=== PATIENT | female | born 1965 | race Caucasian/White ===

== ENCOUNTER 2019-12-28 01:20 | Outpatient (CLI) | payer BC, SELFPAY ==
[2019-12-28 18:03] LABS: SARS-CoV-2 RNA PCR Negative
== END 2019-12-28 01:21 | disposition home or self-care (01) ==
LOC: ANHCOVIDDT 01:20
PROVIDERS: PCP Internal Medicine Geriatric Medicine; Visit Provider Orthopaedic Surgery
DX: Z01.812 Encounter for preprocedural laboratory examination (principal); Z20.828 Contact with and (suspected) exposure to other viral communicable diseases
CPT/HCPCS: 87635; C9803; U0003

== ENCOUNTER 2019-12-31 00:48 | Day surgery (SDC) | payer BC, SELFPAY ==
[2019-12-19 10:17] VITALS: BMI 29.7
[2019-12-31] VITALS (7 sets, daily range): BP systolic 108–140; BP diastolic 59–79; PULSE 61–92; RESP 13–16; TEMP 36.3–36.6; O2SAT 98–100
[2019-12-31] MEDS: ACETAMINOPHEN 500 MG TABLET 1000 MG PO (08:54)
[2019-12-31] MEDS: KETOROLAC 15 MG/ML VIAL (*BKC) IV PUSH (09:19)
--- NOTE | 2019-12-31 09:22 | WPDANESEPPF ---
Anes - Initial Pre Proc Eval Procedure: Operation Date: 12/31/19 10:30 Proposed Procedures p Left Carpal Tunnel Release, Left Cubital Tunnel Decompression - Leodan Brar MD Date/Time: 12/31/19 09:22 Surgeon: Leodan Brar MD Pre Op Diagnosis: left carpal and cubital tunnel syndrome Patient Data Age: 54 Gender: F Height: 5 ft 7 in Weight: 88.2 kg Last Vital Signs Temp 36.6 C 12/31/19 08:46 Pulse 64 12/31/19 08:46 Resp 14 12/31/19 08:46 BP 140/59 L 12/31/19 08:46 Pulse Ox 98 12/31/19 08:46 Allergies Allergy/AdvReac Type Severity Reaction Status Date / Time No Known Allergies Allergy Verified 12/31/19 09:07 Home Medications Medication Instructions Recorded Confirmed Type cyanocobalamin (vitamin B-12) 1,000 mcg PO DAILY 12/19/19 12/31/19 History [Vitamin B-12] fluticasone propionate [Flonase 1 spray INTRANASAL DAILY 12/19/19 12/31/19 History Allergy Relief] Patient hx anesthesia problems: none Family hx anesthesia problems: post op nausea/vomiting PMFSH Surgical History Surgical History History of bladder surgery Tie Up History of shoulder surgery (~05/01/15) History of vaginal hysterectomy Social History Social History Smoking status: Never smoker Alcohol intake: current Drinks per week: 3 Spiritual care concerns: No Anes - Eval Final PreProcedure Day of Procedure 12/31/19 09:22 Patient weight: overweight Heart: regular rate and rhythm Lungs: clear to auscultation Airway: Mallampati scale class II Neurological: alert and oriented Last oral intake: >/= 8 hours ASA classification: II Emergent: no Anesthetic plan: proceed Anesthesia type and monitoring: general LMA and standard monitoring Informed Consent: The patient's anesthetic plan and its attendant risks and benefits were discussed with the patient/family/POA. Questions were solicited and answers provided to the satisfaction of the patient/family/POA.
[2019-12-31] MEDS: SCOPOLAMINE 1.5 MG PATCH TRANSDERM (09:32)
[2019-12-31] MEDS: LACTATED RINGERS 1,000 ML 30 ML IV CONT ×2 (09:33→12:02)
--- NOTE | 2019-12-31 10:34 | WPDHPUPDATE1 ---
History and Physical Update Update Date/Time: 12/31/19 10:34 History and Physical has been reviewed, including an updated exam of the patient. There are NO changes in the patient's condition. Risks, benefits, and alternatives have been discussed and questions answered. Patient agrees to proceed with procedure.
[2019-12-31] MEDS: ceFAZolin 2 GM/D5W 50 ML 2 GM/50 ML BAG IVPB (10:41)
[2019-12-31] MEDS: BUPIVACAINE/EPINEPHRINE 0.5% 30 ML VIAL 20 ML INFILTRATE (10:57)
[2019-12-31] MEDS: BUPIVACAINE/EPINEPHRINE 0.5% 30 ML VIAL 8 ML INFILTRATE (11:43)
--- NOTE | 2019-12-31 12:10 | P.OP_ITS ---
Procedure Note - Detailed Date of procedure: 12/31/19 Pre-op diagnosis: left carpal and cubital tunnel syndrome Post-op diagnosis: same Procedure performed: 1. Carpal Tunnel Release 2. Ulnar nerve decompression at the elbow. Anesthesia: MAC Surgeon: Leodan Brar MD Estimated blood loss (mL): 5 Complications: None Condition: stable Findings: Operative details. After sedation was administer, the hand was prepped and draped in the usual sterile fashion. The proposed incision was marked using typical anatomic landmarks. 3ML 0.5% Marcaine with epinephrine was injected along the incision line and at the distal forearm. The limb was exsanguinated and the tourniquet inflated to 250 millimeters of mercury. A longitudinal incision was taken sharply. Dissection was brought down to the transverse carpal ligament. Under direct vision the ligament was incised sharply. The proximal release was carried out with dissection scissors. The contents of the carpal canal were protected with a [place] elevator. The transverse carpal ligament was confirmed to be widely patent. Attention was turned to the elbow. A longitudinal incision was created posterior to the medial epicondyle. Careful dissection was brought down to the ulnar nerve. It was identified proximally and dissected to the cubital tunnel retinaculum. Careful dissection released the cubital tunnel retinaculum. The dissection was carried out to the flexor carpi the palmaris. The 1st motor branch was carefully identified and protected. Attention was turned proximally in the nerve was released proximal to the intermuscular septum. The arm was flexed and the nerve was assessed. The nerve was stable. The tourniquet was released to assure that there was no significant bleeding. Meticulous hemostasis was maintained. 5ML 0.5% Marcaine with epinephrine was injected along the incision. The subcutaneous tissues were closed with 2-0 Vicryl suture. The skin was closed with interrupted 3-0 Monocryl suture followed by running 4-0 Monocryl suture and Steri-Strips. Sterile dressing was applied with a splint at the wrist and elbow. The patient was extubated and brought to the recovery room in stable condition.
== END 2019-12-31 13:40 | disposition home or self-care (01) ==
PROVIDERS: PCP Internal Medicine Geriatric Medicine; Visit Provider Orthopaedic Surgery
PROC: (CPT 64721; principal; 2019-12-31 10:30)
DX: G56.02 Carpal tunnel syndrome, left upper limb (principal); G56.22 Lesion of ulnar nerve, left upper limb
CPT/HCPCS: 64721; 64718; A9270; J0690; J1100; J1170; J1885; J2250; J2405; J2704; J3010; J7120

== ENCOUNTER 2021-10-27 08:38 | Outpatient (CLI) | payer BC, SELFPAY ==
--- NOTE | ~2021-10-27 | XR_ITS ---
XR knee LT min 4V DATE: 10/27/2021 08:52 INDICATION: Left knee lateral pain. No injury. TECHNIQUE: [place], weightbearing AP, PA and lateral views COMPARISON: None FINDINGS: There is moderate loss of height of the medial compartment joint space. There is minimal pe riarticular spurring of the patella. No fracture or dislocation, periosteal reaction or bone destruction. No joint effusion. No radiopaque intra-articular loose body or chondrocalcinosis. Osteochondroma of the fibular neck. 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
== END 2021-10-27 08:39 | disposition home or self-care (01) ==
LOC: ANHIMG 08:39
PROVIDERS: PCP Internal Medicine Geriatric Medicine; Visit Provider Physician Assistant Surgical
DX: M17.12 Unilateral primary osteoarthritis, left knee (principal); D16.22 Benign neoplasm of long bones of left lower limb
CPT/HCPCS: 73564